=== PATIENT | male | born 1970 | race Caucasian/White ===

== ENCOUNTER 2017-12-30 11:39 | Emergency (ER) | payer SELFPAY ==
[2017-12-30] MEDS ORDERED: IBUPROFEN 400 MG TABLET PO ONE (12:04)
[2017-12-30] MEDS ORDERED: IBUPROFEN 400 MG TABLET ONE (12:07)
--- NOTE | 2017-12-30 12:18 | ERNOTE ---
Abdominal HPI - General Chief Complaint: Abdominal Pain Time Seen by Provider: 12/30/17 11:56 Source: patient Exam Limitations: no limitations - Immun/Allergies/Home Medications Immunizatons: IMMUNIZATION HX Immunizations Up to Date Yes History of Influenza Vaccine No Hx Pneumococcal Vaccination No Allergies/Adverse Reactions: Allergies adhesive Allergy (Unknown, Verified 12/30/17 12:18) Other Home Medications: HOME MEDICATIONS Ibuprofen [Motrin] 800 mg PO TID PRN #30 tab 12/30/17 [Last Taken Unknown] - History of Present Illness Narrative: Patient was diagnosed with an umbilical hernia about a month ago. He has had pain in that area since. He is currently traveling with [email or web address] to [place]. The pain got so severe that he got off the train here and called the ambulance to come to the ER. He denies any other symptoms, no fever, no nausea, no diarrhea. He has not tried any pain meds Timing: constant Quality: moderate Activities at Onset: none Associated Symptoms: Absent: chest pain, neck pain, diaphoresis, fever/chills, heartburn, nausea, vomiting Review of Systems - Review of Systems Constitutional: Absent: recent illness, fever, chills ENT: Absent: nose congestion Respiratory: Absent: shortness of breath, cough Cardiology: Absent: chest pain Gastrointestinal/Abdominal: Present: See HPI, abdominal pain. Absent: nausea, vomiting, diarrhea Genitourinary: Present: no symptoms reported Musculoskeletal: Absent: back pain Neurological: Absent: headache - Patient's Past Medical History Patient History - Medical: Obesity, Other Patient History - Cardiac/Respiratory: No pertinent hx Patient History - Cancer: No Hx of Cancer Patient History - Surgical Procedures: Other Patient History - Other: None - Social History Living Situations: home Abuse History: No History of abuse Psych History: No pertinent hx Smoking Status: Never smoker Have you smoked in the past 12 months: No Do you dip or chew tobacco: No Alcohol Use: rarely Drug Use: none - Immunizations Immunizations Up to Date: Yes Hx Pneumococcal Vaccination: No History of Influenza Vaccine: No Physical Exam - Physical Exam General Appearance: Present: wd/wn, alert, no apparent distress, obese Respiratory: Present: no respiratory distress, normal breath sounds, no accessory muscle use, chest nontender, lungs clear Cardiovascular/Chest: Present: regular rate, rhythm, no murmur Gastrointestinal/Abdominal: Present: normal bowel sounds, nontender, nondistended, soft, other - large umbilical hernia, easily reducable Neurological Exam: Present: alert, oriented, normal mood/affect Skin Exam: Present: normal color, warm/dry ED Progress - Vital Signs Patient's Vital Signs:: I have reviewed the patient's vital signs. Vital Signs: Vital Signs 12/30/17 11:44 Temperature 36.7 C Pulse Rate 87 Respiratory 20 Rate Blood Pressure 102/47 O2 Sat by Pulse 100 Oximetry - Progress/Reassessment Chief Complaint: Abdominal Pain Departure Clinical Impression: Umbilical hernia Qualifiers: Obstruction and gangrene presence: without obstruction or gangrene Qualified Code(s): K42.9 - Umbilical hernia without obstruction or gangrene - Departure Disposition: Home Follow Up Needed Condition: Stable Instructions: Hernia, Adult Additional Instructions: either when you get to your destination or when you get home follow up with a surgeon to have the hernia repaired Prescriptions: Ibuprofen [Motrin] 800 mg PO TID PRN #30 tab PRN Reason: Pain
[2017-12-30 13:12] VITALS: BP 126/69
== END 2017-12-30 12:48 | disposition home or self-care (01) ==
LOC: ER 11:39
DX: K42.9 Umbilical hernia without obstruction or gangrene; Z68.44 Body mass index [BMI] 60.0-69.9, adult; E66.9 Obesity, unspecified